=== PATIENT | female | born 1935 | race American Indian/Alaskan Native ===

== ENCOUNTER 2016-12-31 06:12 | Day surgery (SDC) | payer MEDICARE, OTHER ==
[2016-12-27 11:22] VITALS: BMI 23.9
[2016-12-31] MEDS ORDERED: Propofol 10 mg/ml Inj (20 ML) ONE ×2 (07:59→08:23)
[2016-12-31] MEDS ORDERED: Sodium Chloride 0.9% 1,000 ML IV SCH (09:00)
[2016-12-31 11:35] VITALS: BP 146/67; RESP 18; TEMP 97.8
[2016-12-31 11:36] VITALS: PULSE 83; O2SAT 97
== END 2016-12-31 11:18 | disposition home or self-care (01) ==
LOC: ENDO 06:12
PROVIDERS: ATTEND Internal Medicine
DX: Z12.11 Encounter for screening for malignant neoplasm of colon (principal); D12.2 Benign neoplasm of ascending colon; K29.50 Unspecified chronic gastritis without bleeding; B96.81 Helicobacter pylori [H. pylori] as the cause of diseases classified elsewhere; K25.9 Gastric ulcer, unspecified as acute or chronic, without hemorrhage or perforation; K63.5 Polyp of colon; K57.30 Diverticulosis of large intestine without perforation or abscess without bleeding; R68.81 Early satiety; K44.9 Diaphragmatic hernia without obstruction or gangrene; K62.1 Rectal polyp; E11.9 Type 2 diabetes mellitus without complications; I10 Essential (primary) hypertension; E78.5 Hyperlipidemia, unspecified; Z80.0 Family history of malignant neoplasm of digestive organs
CPT/HCPCS: 43239; 45380; 45381; 45385; 82948; 88305; 88342; J2001; J2704; J3010; J7040 ×2